=== PATIENT | female | born 2000 | race American Indian/Alaskan Native ===

== ENCOUNTER 2022-01-07 15:30 | Outpatient (CLI) | payer BC, OTHER ==
[2022-01-07 16:06] VITALS: BP 106/67
[2022-01-07] MEDS ORDERED: TERBUTALINE 1 MG/1 ML INJ SUB-Q SCH (17:00)
[2022-01-07] MEDS ORDERED: LACTATED RINGERS 500 ML IV ONE (17:00)
[2022-01-07 17:07] LABS: Bacteria,Urine 2+ /HPF (Negative); Mucus,Urine FEW /HPF
[2022-01-07 17:09] LABS: Color,Urine Yellow (Yellow)
[2022-01-07 17:14] LABS: Amphetamine Screen,Urine Negative; Benzodiazepines Screen,Urine Negative; Cannabinoid Screen,Urine Negative; Cocaine Screen,Urine Negative; Methadone Screen,Urine Negative; Opiate Screen,Urine Negative
--- NOTE | 2022-01-07 19:03 | Ultrasound Report ---
ULTRASOUND OBSTETRIC INDICATION / CLINICAL INFORMATION: labor. - Clinical Gestational Age (GA) in weeks, days: 31, 1 TECHNIQUE: Transabdominal. COMPARISON: None available. FINDINGS: Single intrauterine . Biparietal Diameter = 7.9 cm = 31.5 weeks, days Head Circumference = 27.8 cm = 30.3 weeks, days Abdominal Circumference = 24.6 cm = 28.6 weeks, days Femur Length = 6 cm = 31.1 weeks, days Average Ultrasound Age (AUA) = 30.4 weeks, days Heart Rate: 156 beats per minute. Estimated Weight in grams (if calculated): 142 Estimated Weight Growth Percentile (if calculated): 9th Position: cephalic. Cervix: Not well visualized. Placenta: anterior. Amniotic Fluid Index (ASIA) in cm (if calculated): 9. IMPRESSION: 1. Single, living intrauterine with estimated sonographic age of 30.4 weeks, days. 2. Fetus estimated weight near the lower limits of normal for gestational age. 3. Continued obstetric follow-up recommended. Signer Name: Des Navarrete MD Signed: 01/07/2022 6:59 PM Workstation Name: [id number]
== END 2022-01-07 19:03 | disposition home or self-care (01) ==
LOC: TRG 15:30 → APU 15:32 → TRG 19:03
PROVIDERS: ATTEND Obstetrics & Gynecology
DX: O46.93 Antepartum hemorrhage, unspecified, third trimester (principal); O26.853 Spotting complicating pregnancy, third trimester; Z3A.31 31 weeks gestation of pregnancy
CPT/HCPCS: 59025; 76805; 76816; 80307; 81001; 87086; 96360